=== PATIENT | female | born 1945 | race Caucasian/White ===

== ENCOUNTER → 2016-11-22 | Outpatient (CLI) | payer MEDICARE, OTHER ==
[~2016-11-22] MED LIST: ALBUTEROL0.09 MG/A3 IH; ATIVAN1 MG PO; CLIMARA0.1 MG/24 TD; EFFEXOR XR75 MG PO; FLEXERIL10 MG PO; LAMOTRIGINE200 MG PO; LEVOTHYROXINE0.1 MG PO; OXYCODONE5 M1 PO; SINGULAIR10 MG PO
== END ==
LOC: BHSO 14:13
DX: F31.81 Bipolar II disorder (principal)

== ENCOUNTER → 2017-01-17 | Outpatient (CLI) | payer MEDICARE, OTHER | LOC: BHSO 14:18 | DX: F31.73 Bipolar disorder, in partial remission, most recent episode manic (principal) ==

== ENCOUNTER → 2017-03-21 | Outpatient (CLI) | payer MEDICARE, OTHER | LOC: BHSO 13:36 | DX: F31.81 Bipolar II disorder (principal) ==

== ENCOUNTER → 2017-06-20 | Outpatient (CLI) | payer MEDICARE, OTHER | LOC: BHSO 14:07 | DX: F31.81 Bipolar II disorder (principal) ==

== ENCOUNTER → 2017-07-20 | Outpatient (CLI) | payer MEDICARE, OTHER | LOC: BHSO 10:28 | DX: F31.81 Bipolar II disorder (principal) ==

== ENCOUNTER → 2017-08-20 | Outpatient (CLI) | payer MEDICARE, OTHER | LOC: BHSO 13:48 | DX: F31.81 Bipolar II disorder (principal) ==

== ENCOUNTER → 2017-09-12 | Outpatient (CLI) | payer MEDICARE, OTHER | LOC: BHSO 14:05 | DX: F31.81 Bipolar II disorder (principal) ==

== ENCOUNTER → 2017-11-16 | Outpatient (CLI) | payer MEDICARE, OTHER | LOC: BHSO 12:44 | DX: F31.81 Bipolar II disorder (principal) | CPT/HCPCS: G0463 ==

== ENCOUNTER → 2018-02-15 | Outpatient (CLI) | payer MEDICARE, OTHER | LOC: BHSO 13:29 | DX: F31.81 Bipolar II disorder (principal) | CPT/HCPCS: G0463 ==

== ENCOUNTER → 2018-04-19 | Outpatient (CLI) | payer MEDICARE, OTHER | LOC: BHSO 12:59 | DX: F31.81 Bipolar II disorder (principal) | CPT/HCPCS: G0463 ==

== ENCOUNTER → 2018-08-05 | Outpatient (CLI) | payer MEDICARE | LOC: BHSO 13:52 | DX: F31.81 Bipolar II disorder (principal) | CPT/HCPCS: G0463 ==

== ENCOUNTER → 2018-09-23 | Outpatient (CLI) | payer MEDICARE | LOC: BHSO 13:34 | DX: F31.81 Bipolar II disorder (principal) | CPT/HCPCS: G0463 ==

== ENCOUNTER 2018-12-18 13:52 | Emergency (ER) | payer MEDICARE ==
[~2018-12-18] VITALS: Ht 165.1 cm; Wt 77.3 kg
[~2018-12-18 13:52] MED LIST changes: -AMARYL1 MG PO; -BUSPIRONE HCL7.5 MG PO; -BYSTOLIC5 MG PO; -CRESTOR5 MG PO; -CYMBALTA 30MG30 MG PO; -GLUCOPHAGE XR500 M1 PO; -KLONOPIN WAFER0.5 MG PO; -LAMICTAL 100MG100 MG PO; -LASIX 20MG TABL20 MG PO; -PRILOSEC 20MG20 MG PO; -PRINIVIL10 MG PO; -REQUIP 1MG T1 MG/TAB PO; -VESICARE10 MG PO; -ZOHYDRO ER10 MG PO
[2018-12-18 14:00] VITALS: TEMP 98
[2018-12-18 14:25] LABS: BASO % 0.6 % (0.0-2.0); EOS # 0.1 (0.0-0.7); EOS % 1.8 % (0-4.0); GRAN # 3.3 (1.4-6.5); GRAN % 49.4 % (42.2-75.2); HEMATOCRIT 37.1 % (37.0-47.0); HEMOGLOBIN 12.8 g/dl (12.5-16.0); LYMPH # 2.6 (1.2-3.4); LYMPH % 38.7 % (20.0-51.0); MEAN CELL VOLUME 90 fl (80.0-100.0); MEAN CORPUSCULAR HEMOGLOBIN 31 pg (27.0-31.0); MEAN CORPUSCULAR HGB CONC 35 g/dl (33.0-37.0); MEAN PLATELET VOLUME 9.6 fl (7.4-10.4); MONO # 0.6 (0.1-0.6); MONO % 9.4 % (1.7-9.3); PLATELET COUNT 180 K/mm3 (130-400); RED BLOOD COUNT 4.11 M/mm3 (4.10-5.30); REDCELL DISTRIBUTION WIDTH-CV 13.1 % (11.5-14.5)
[2018-12-18 14:37] LABS: ALBUMIN 4.2 gm/dL (3.5-5.0); BILIRUBIN,TOTAL 0.6 mg/dL (0.0-1.0); CALCIUM 10.2 mg/dL (8.4-10.2); CREATININE, serum 0.74 mg/dL (0.52-1.25); POTASSIUM 3.7 mmol/L (3.4-5.0); TOTAL PROTEIN 7.3 gm/dL (6.4-8.2)
[2018-12-18 14:56] LABS: C-REACTIVE PROTEIN 0.5 mg/dL (0.0-0.9)
[2018-12-18] MEDS ORDERED: VESICARE10 MG PO (15:21)
[2018-12-18] MEDS ORDERED: LASIX 20MG TABL20 MG PO (15:22)
[2018-12-18] MEDS ORDERED: PRINIVIL10 MG PO (15:22)
[2018-12-18] MEDS ORDERED: BYSTOLIC5 MG PO (15:23)
[2018-12-18] MEDS ORDERED: BUSPIRONE HCL7.5 MG PO (15:25)
[2018-12-18] MEDS ORDERED: AMARYL1 MG PO (15:25)
[2018-12-18] MEDS ORDERED: CYMBALTA 30MG30 MG PO (15:25)
[2018-12-18] MEDS ORDERED: REQUIP 1MG T1 MG/TAB PO (15:26)
[2018-12-18] MEDS ORDERED: CRESTOR5 MG PO (15:27)
[2018-12-18] MEDS ORDERED: KLONOPIN WAFER0.5 MG PO (15:27)
[2018-12-18] MEDS ORDERED: GLUCOPHAGE XR500 M1 PO (15:28)
[2018-12-18] MEDS ORDERED: LAMICTAL 100MG100 MG PO (15:28)
[2018-12-18] MEDS ORDERED: ZOHYDRO ER10 MG PO (15:29)
[2018-12-18] MEDS ORDERED: PRILOSEC 20MG20 MG PO (15:29)
[2018-12-18 15:31] LABS: COLLECTION METHOD CLEAN CATCH
[2018-12-18 15:45] LABS: MUCOUS Present /lpf; PH 7 (5-8); URINE APPEARANCE Clear; URINE BACTERIA None Seen /hpf; URINE BILIRUBIN Negative (NEGATIVE); URINE BLOOD Negative (NEGATIVE); URINE COLOR Yellow; URINE GLUCOSE 1+ (NEGATIVE); URINE KETONE Negative (NEGATIVE); URINE LEUKOCYTE ESTERASE Negative (NEGATIVE); URINE NITRATE Negative (NEGATIVE); URINE PROTEIN(semi-quant) Negative (NEGATIVE)
[2018-12-18 16:14] VITALS: BP 131/72; PULSE 74
== END 2018-12-18 16:21 | disposition home or self-care (01) ==
LOC: COL.ER 13:52
PROVIDERS: Family Medicine
DX: R41.82 Altered mental status, unspecified (principal)
CPT/HCPCS: J7030

== ENCOUNTER → 2018-12-18 | Outpatient (CLI) | payer MEDICARE ==
[~2018-12-18] MED LIST changes: +AMARYL1 MG PO; +BUSPIRONE HCL7.5 MG PO; +BYSTOLIC5 MG PO; +CRESTOR5 MG PO; +CYMBALTA 30MG30 MG PO; +GLUCOPHAGE XR500 M1 PO; +KLONOPIN WAFER0.5 MG PO; +LAMICTAL 100MG100 MG PO; +LASIX 20MG TABL20 MG PO; +PRILOSEC 20MG20 MG PO; +PRINIVIL10 MG PO; +REQUIP 1MG T1 MG/TAB PO; +VESICARE10 MG PO; +ZOHYDRO ER10 MG PO
== END ==
LOC: BHSO 13:00
DX: F31.81 Bipolar II disorder (principal)
CPT/HCPCS: G0463

== ENCOUNTER → 2019-01-17 | Outpatient (CLI) | payer MEDICARE ==
[~2019-01-17] MED LIST changes: +AMARYL1 MG PO; +BUSPIRONE HCL7.5 MG PO; +BYSTOLIC5 MG PO; +CRESTOR5 MG PO; +CYMBALTA 30MG30 MG PO; +GLUCOPHAGE XR500 M1 PO; +KLONOPIN WAFER0.5 MG PO; +LAMICTAL 100MG100 MG PO; +LASIX 20MG TABL20 MG PO; +PRILOSEC 20MG20 MG PO; +PRINIVIL10 MG PO; +REQUIP 1MG T1 MG/TAB PO; +VESICARE10 MG PO; +ZOHYDRO ER10 MG PO
== END ==
LOC: BHSO 14:01
DX: F31.81 Bipolar II disorder (principal)
CPT/HCPCS: G0463

== ENCOUNTER → 2019-05-05 | Outpatient (CLI) | payer MEDICARE | LOC: BHSO 10:18 | DX: F41.1 Generalized anxiety disorder (principal) | CPT/HCPCS: G0463 ==

== ENCOUNTER → 2019-07-01 | Outpatient (CLI) | payer MEDICARE | LOC: BHSO 10:18 | DX: F41.1 Generalized anxiety disorder (principal) | CPT/HCPCS: G0463 ==

== ENCOUNTER → 2019-08-14 | Outpatient (CLI) | payer MEDICARE | LOC: BHSO 10:20 | DX: F31.81 Bipolar II disorder (principal) | CPT/HCPCS: G0463 ==

== ENCOUNTER → 2019-10-15 | Outpatient (CLI) | payer MEDICARE | LOC: BHSO 11:06 | DX: F31.81 Bipolar II disorder (principal) | CPT/HCPCS: G0463 ==

== ENCOUNTER → 2019-12-03 | Outpatient (CLI) | payer MEDICARE | LOC: BHSO 14:43 | DX: F05 Delirium due to known physiological condition (principal) | CPT/HCPCS: G0463 ==

== ENCOUNTER → 2020-04-29 | Outpatient (CLI) | payer MEDICARE | LOC: BHSO 11:18 | DX: F41.1 Generalized anxiety disorder (principal) | CPT/HCPCS: G0463 ==

== ENCOUNTER → 2020-06-11 | Outpatient (CLI) | payer MEDICARE | LOC: BHSO 09:36 | DX: F41.1 Generalized anxiety disorder (principal) | CPT/HCPCS: G0463 ==

== ENCOUNTER → 2020-07-01 | Outpatient (CLI) | payer MEDICARE | LOC: BHSO 11:42 | DX: F41.0 Panic disorder [episodic paroxysmal anxiety] (principal) | CPT/HCPCS: G0463 ==